=== PATIENT | male | born 1955 | race Caucasian/White ===

== ENCOUNTER 2017-07-06 07:01 | Day surgery (SDC) | payer BC ==
[2017-07-06] MEDS ORDERED: MIDAZOLAM 2 MG/2 ML VIAL IVP ONE (07:04)
[2017-07-06] MEDS ORDERED: BENZOCAINE UNIT DOSE SPRAY HURRICAINE MM ONE (07:04)
[2017-07-06] MEDS ORDERED: fentaNYL 100 MCG/2 ML INJ IVP ONE (07:04)
[2017-07-06] MEDS ORDERED: NS 500 ML IV ONE (07:04)
--- NOTE | 2017-07-06 08:22 | PDANEPAE ---
ANE History of Present Illness 61 yo for sergio ANE Past Medical History - Cardiovascular History Hx Hypertension: Yes ANE Review of Systems Review of Systems: - Exercise capacity METS (RN): 4 METS ANE Patient History - Allergies Allergies/Adverse Reactions: No Known Allergies Allergy (Unverified 07/06/17 07:03) - Home Medications Home medications: home medication list seen and reviewed - NPO status NPO Status: no food or drink >8 hours - Anes Hx Anes Hx: no prior problems - Smoking Hx Smoking Status: Never smoked ANE Physical Exam - Airway Neck exam: FROM Mallampati Score: Class 2 - Pulmonary Pulmonary: no respiratory distress - Cardiovascular Cardiovascular: regular rate and rhythym - ASA Status ASA Status: II ANE Anesthesia Plan Anesthesia Plan: GA with mask
[2017-07-06] MEDS ORDERED: ATROPINE SULFATE 1 MG/10 ML SYR ONE (08:29)
[2017-07-06] MEDS ORDERED: PROPOFOL 200 MG/20 ML VIAL ONE (08:42)
--- NOTE | 2017-07-06 08:57 | PDGENHP ---
History & Physical Chief Complaint: Hypertension, KATHY, Possible Bicuspid Aortic Valve History of Present Illness: Mr. Shanks is a pleasant 61 year old male who presents for MONAE after TTE was unable to determin the morphology of Aoritic valve. Possible Bicuspid. Pertinent Past, Social, Family History: PMH: HTN, Gout, Hyperlipidemia, GERD, Anxiety. Social Hx: . 5 beers per night. Family: no family hx of congential heart diseae Relevant Physical Exam: Awake, Alert, Oriented. S1/S2 no m,r, g. CTAB. No LE edema Cardiorespiratory Assessment: Plan: MONAE toasses aortic vavle.
--- NOTE | 2017-07-06 09:56 | CPR ---
[f rep st] NONINVASIVE CARDIAC PROCEDURE REPORT Corrected report DATE OF PROCEDURE: 07/06/2017 PROCEDURE PERFORMED: Transesophageal echocardiogram. INDICATION FOR PROCEDURE: Evaluate aortic valve for possible bicuspid aortic valve noted on surface echocardiogram. PROCEDURE: After informed consent was obtained, the patient was brought to the cardiovascular unit. He signed consents for both sedation and transesophageal echocardiogram. After a time out, bite block was placed. Once propofol was infused to appropriate level of sedation MONAE probe was passed without incident. MONAE probe was used to take images of all cardiac structures. The primary focused on the aortic valve. Aortic valve was clearly tricuspid and normal function with no evidence of aortic insufficiency and no evidence of aortic stenosis. Please see complete echo report for full details. Patient tolerated the procedure well. MONAE probe was removed without incident. Patient awoke from anesthesia without complications. Images were reviewed with patient and his . All of his questions were answered. PLAN: 1. Patient will be discharged home at approximately 10:15. 2. He will remain on cardiac monitoring throughout his time postoperatively. 3. Report will be sent to his primary care physician, Dr. Kedar Hoover. He does not require further repeat echocardiograms in my opinion. /[id number]/MODL Dion 07/06/17, hubert HECTOR
--- NOTE | 2017-07-06 12:06 | ECHO ---
[email or web address] [address] Main: [phone] Fax: Transesophageal Echocardiography Name: ARAMIS PLAZA MR#: [id number] Study Date: 07/06/2017 Study Time: 08:27 AM Date of : 1955 Age: 61 year(s) Height: ( ) Weight: ( ) BSA: Gender: Male Examination: MONAE Indication: Eval Aortic Valve Image Quality: Contrast: Requested by: Jorje Lovelace Heart Rate: Rhythm: BP: / Procedure Staff Lead Cargoman: José Antonio Hutchinson Physician: Jorje Lovelace Requesting Provider: MONAE Exam Details Patient Consent: Risks, alternatives of procedure explained to patient, informed consent obtained. Measurements: Chambers Valvular Assessment AV/MV Valvular Assessment TV/PV Normal Normal Normal Name Value Range Name Value Range Name Value Range AV Vmax: 1.27 m/s (1 m/s-1.7 m/s) AV maxP mmHg ( - ) Additional Measurements: Findings: Left Ventricle: Normal size left ventricle. No LV hypertrophy. Normal global systolic LV function. No regional wall motion abnormality. Right Ventricle: Normal size right ventricle. Normal RV function. Left Atrium: The left atrium is normal in size. An agitated saline study was performed and was negative for intracardiac shunting. Left Atrial Appendage: Good color flow doppler in the left atrial appendage. Right Atrium: Patient: ARAMIS PLAZA Study Date: 07/06/2017 Page 1 of 2 08:27 AM The right atrium is normal in size. Mitral Valve: The mitral valve is normal in appearance and function. Aortic Valve: The aortic valve is normal in appearance and function. The aortic valve is tri-leaflet. The aortic valve is tri-leaflet and functions normally. Tricuspid Valve: The tricuspid valve is normal in appearance and function. Pulmonic Valve: The pulmonic valve is normal in appearance and function. Aorta: The aorta is normal. Pericardium: No pericardial effusion. l1n (No Signature Object) Patient: ARAMIS PLAZA Study Date: 07/06/2017 Page 2 of 2 08:27 AM [id number]
== END 2017-07-06 11:15 | disposition home or self-care (01) ==
LOC: FCATH 07:01
PROVIDERS: ATTEND Internal Medicine Cardiovascular Disease
PROC: B24BZZ4 Ultrasonography of Heart with Aorta, Transesophageal (ICD-10-PCS; principal; 2017-07-06)
DX: E78.00 Pure hypercholesterolemia, unspecified (principal); I10 Essential (primary) hypertension; Z87.891 Personal history of nicotine dependence
CPT/HCPCS: J0461; J2704